=== PATIENT | female | born 1995 | race Caucasian/White ===

== ENCOUNTER 2018-12-19 12:52 | Emergency (ER) | payer MEDICAID, OTHER ==
[~2018-12-19] VITALS: Ht 172.7 cm; Wt 82.6 kg
--- NOTE | 2018-12-19 13:00 | NUR ---
PT LAMIN SHANE AND JOSE MENTAL EVALUATION UNIT FROM HOME, PER JOSE MOTHER CALLED [facility] PT STATED "I DON'T WANT TO LIVE ANYMORE", PLACED ON 5150 FOR DANGER TO SELF. LFA LAC NOTED, SELF INFLICTED. TO ER BED 11, HOOKED TO MONITOR, CHANGED TO GOWN, PROVIDED W WARM BLANKET, PT DENIES SI IN EMERGENCY DEPT., AWAITING MD FIELD.
[2018-12-19 13:28] LABS: APPEARANCE,URINE Turbid (CLEAR); BILIRUBIN,URINE Negative (NEGATIVE); BLOOD, URINE Moderate Ery/uL (NEGATIVE); COLOR,URINE Yellow (YELLOW); KETONES,URINE Negative (NEGATIVE); LEUKOCYTE ESTERASE ,URINE Moderate (NEGATIVE); NITRITE, URINE Negative (NEGATIVE); PH,URINE 6.5 (5.0-8.0); PROTEIN,URINE Trace mg/dl (NEGATIVE); UGLUCOSE Negative (NEGATIVE); UROBILINOGEN,URINE 0.2 EU/dL (0.2)
[2018-12-19 13:33] LABS: BASOPHILS # (AUTO) 0.1 /CMM (0.0-0.2); BASOPHILS % (AUTO) 1.2 % (0.0-2.0); EOSINOPHILS % (AUTO) 3.4 % (0.0-6.0); HEMATOCRIT 36 % (33-45); LYMPHOCYTES # (AUTO) 2.5 /CMM (0.8-4.8); LYMPHOCYTES % (AUTO) 50.3 % (20.0-44.0); MEAN CORPUSCULAR HGB CONC 33 g/dl (31.0-36.0); MEAN CORPUSCULAR VOLUME 87 fL (82-100); MONOCYTES # (AUTO) 0.5 /CMM (0.1-1.30); MONOCYTES % (AUTO) 10.4 % (2.0-12.0); NEUTROPHILS # (AUTO) 1.7 /CMM (1.8-8.9); NEUTROPHILS % (AUTO) 34.7 % (43.0-81.0); PLATELET COUNT (AUTO) 250 /CMM (150-450); RED BLOOD CELL COUNT(AUTO) 4.16 MIL/uL (4.0-5.2)
[2018-12-19 13:38] LABS: BACTERIA,URINE Many /HPF (None Seen); SQUAMOUS EPITHELIAL CELL,UR Few /HPF (None Seen)
[2018-12-19 13:39] LABS: WBC,URINE TOO NUMEROUS TO COUN /HPF (0-3)
--- NOTE | 2018-12-19 13:40 | NUR ---
ELLA HINTON AT BEDSIDE
[2018-12-19 13:43] LABS: CALCIUM, SERUM 8.8 mg/dL (8.5-10.1); CARBON DIOXIDE 27 mmol/L (21-32); CHLORIDE 105 mmol/L (98-107); CREATININE 0.7 mg/dL (0.6-1.3); GLUCOSE 94 mg/dL (74-106); POTASSIUM 4.2 mmol/L (3.5-5.1); SODIUM SERUM 138 mmol/L (136-145); UREA NITROGEN, BLOOD 10 mg/dL (7-18)
--- NOTE | 2018-12-19 13:45 | NUR ---
PT REFUSED STITCHING OF LFA LAC. ELLA HINTON AT BEDSIDE TO APPLY STERISTRIPS.
[2018-12-19 13:48] LABS: ACETAMINOPHEN < 2 ug/ml (10-30); ALANINE AMINOTRANSFERASE 20 U/L (12-78); ALBUMIN 3.4 g/dL (3.4-5.0); ALCOHOL, BLOOD < 3 mg/dL (0-0); ALKALINE PHOSPHATASE 66 U/L (46-116); ASPARTATE AMINOTRANSFERASE 18 U/L (15-37); BILIRUBIN,DIRECT 0.1 mg/dL (0.0-0.2); BILIRUBIN,TOTAL 0.5 mg/dL (0.2-1.0); SALICYLATE < 2.8 mg/dL (2.8-20.0); TOTAL PROTEIN, SERUM 6.7 g/dL (6.4-8.2)
--- NOTE | 2018-12-19 14:55 | NUR ---
MOTHER CHRISTIAN ELIAS AT BEDSIDE
--- NOTE | 2018-12-19 15:17 | NUR ---
CALLED [employer] JAYE LEFT VOICEMAIL.
[2018-12-19] MEDS ORDERED: NITROFURANTOIN/NITROFURAN MAC 100 MG CAPSULE ONE (15:23)
[2018-12-19] MEDS ORDERED: NITROFURANTOIN/NITROFURAN MAC 100 MG CAPSULE PO ONE (15:30)
--- NOTE | 2018-12-19 16:56 | NUR ---
[employer] MACHINE JAYE AT BEDSIDE
[2018-12-19] MEDS ORDERED: LIDOCAINE 1%-EPI 1:100,000 20 ML VIAL ONE (16:57)
--- NOTE | 2018-12-19 16:57 | NUR ---
FOOD TRAY PROVIDED TO PATIENT
--- NOTE | 2018-12-19 17:08 | NUR ---
ELLA HINTON AT BEDSIDE FOR STITCHING OF LFA LAC
--- NOTE | 2018-12-19 17:10 | NUR ---
medical restraints removed as pt is calmer and cooperative w care. mother at bedside.
[2018-12-19] MEDS ORDERED: TDAP [DIPH/PERTUSSIS/TET] 0.5 ML VIAL IM ONE ×2 (17:30→17:35)
--- NOTE | 2018-12-19 17:46 | NUR ---
Patient discharged to home with mother in stable condition. Written and verbal after care instructions given. Patient verbalizes understanding of instruction.
[2018-12-19 17:49] VITALS: BP 124/70
== END 2018-12-19 17:50 | disposition home or self-care (01) ==
LOC: ER 12:58
DX: S51.812A Laceration without foreign body of left forearm, initial encounter (principal); N39.0 Urinary tract infection, site not specified; F15.10 Other stimulant abuse, uncomplicated; F31.9 Bipolar disorder, unspecified; F25.9 Schizoaffective disorder, unspecified; F12.10 Cannabis abuse, uncomplicated; F17.200 Nicotine dependence, unspecified, uncomplicated; Z23 Encounter for immunization; Z88.0 Allergy status to penicillin; X78.9XXA Intentional self-harm by unspecified sharp object, initial encounter; Y93.89 Activity, other specified; Y92.89 Other specified places as the place of occurrence of the external cause; Y99.8 Other external cause status
CPT/HCPCS: 12002; 36415; 80048; 80076; 80307; 80329; 81001; 84703; 85025; 87077; 87086; 90471; 90715; 99285; A6403; J3490; 80305; 81000-TC; G0480

== ENCOUNTER 2023-01-15 18:12 | Emergency (ER) | payer OTHER ==
[~2023-01-15] VITALS: Ht 172.7 cm; Wt 108.9 kg
--- NOTE | 2023-01-15 18:20 | NUR ---
BIBRA 41 ALLERGIC REACTION. NO SIGNS OF SYMPTOMS OF DISTRESS NOTED. AIRWAY IS CLEAR. TONGUE IS NOT SWELLING. .5 EPI IM GIVEN OCEANOLOGIST BY EMS. PLACED IN BED, AAOX4, BREATHING EVEN AND UNLABORED SATURATING AT 98%RA.
[2023-01-15] MEDS ORDERED: methylPREDNISolone SOD SUCC 125 MG/2ML VIAL ONE (18:24)
[2023-01-15] MEDS ORDERED: FAMOTIDINE/PF INJ 20 MG/2 ML VIAL IV ONE ×2 (18:25→18:30)
[2023-01-15] MEDS ORDERED: methylPREDNISolone SOD SUCC 125 MG/2ML VIAL IV ONE (18:30)
[2023-01-15] MEDS ORDERED: IV NS 0.9% 1,000 ML BAG IV ONE (18:30)
--- NOTE | 2023-01-15 18:30 | NUR ---
BLOOD DRAWN AND SENT TO LAB
[2023-01-15] MEDS ORDERED: diphenhydrAMINE HCL 50 MG/ML VIAL ONE (18:42)
[2023-01-15] MEDS ORDERED: diphenhydrAMINE HCL 50 MG/ML VIAL IV ONE (19:00)
[2023-01-15 19:20] LABS: BASOPHILS % (AUTO) 0.7 % (0.0-2.0); EOSINOPHILS % (AUTO) 3.2 % (0.0-6.0); HEMATOCRIT 36 % (33-45); HEMOGLOBIN 11.8 g/dL (11.5-14.8); LYMPHOCYTES # (AUTO) 3.6 K/uL (0.8-4.8); LYMPHOCYTES % (AUTO) 50.2 % (20.0-44.0); MEAN CORPUSCULAR HGB CONC 33 g/dl (31.0-36.0); MEAN CORPUSCULAR VOLUME 86 fL (82-100); MONOCYTES # (AUTO) 0.6 K/uL (0.1-1.30); MONOCYTES % (AUTO) 8.4 % (2.0-12.0); NEUTROPHILS # (AUTO) 2.7 K/uL (1.8-8.9); NEUTROPHILS % (AUTO) 37.5 % (43.0-81.0); PLATELET COUNT (AUTO) 300 K/uL (150-450); RED BLOOD CELL COUNT(AUTO) 4.21 MIL/uL (4.0-5.2); WHITE BLOOD COUNT (AUTO) 7.1 K/uL (4.3-11.0)
[2023-01-15 19:35] LABS: ALANINE AMINOTRANSFERASE 38 U/L (12-78); ALBUMIN 3.5 g/dL (3.4-5.0); ALCOHOL, BLOOD < 3 mg/dL (0-10); ALKALINE PHOSPHATASE 74 U/L (46-116); ASPARTATE AMINOTRANSFERASE 15 U/L (15-37); BILIRUBIN,TOTAL 0.2 mg/dL (0.2-1.0); CALCIUM, SERUM 9.2 mg/dL (8.5-10.1); CARBON DIOXIDE 31 mmol/L (21-32); CHLORIDE 105 mmol/L (98-107); CREATININE 0.7 mg/dL (0.6-1.3); GLUCOSE 109 mg/dL (74-106); POTASSIUM 3.9 mmol/L (3.5-5.1); SODIUM SERUM 143 mmol/L (136-145); TOTAL PROTEIN, SERUM 7.5 g/dL (6.4-8.2); UREA NITROGEN, BLOOD 10 mg/dL (7-18)
--- NOTE | 2023-01-15 20:30 | NUR ---
IV removed. Catheter intact and site benign. Pressure and 4x4 applied to site. No bleeding noted.Patient discharged to home in stable condition. Written and verbal after care instructions given. Patient verbalizes understanding of instruction.
[2023-01-15 20:40] VITALS: BP 120/70; TEMP 98; O2SAT 99
== END 2023-01-15 20:30 | disposition home or self-care (01) ==
LOC: ER 18:17
DX: G24.9 Dystonia, unspecified (principal); T43.4X5A Adverse effect of butyrophenone and thiothixene neuroleptics, initial encounter; F20.9 Schizophrenia, unspecified; Z88.0 Allergy status to penicillin; Y92.89 Other specified places as the place of occurrence of the external cause
CPT/HCPCS: 99284; 96374; 96361; 96375; 85025; 80048; 80076; 36415; 80143; 80320; 80179; J1200; J3490; J2930; J7030; G0480

== ENCOUNTER 2024-06-02 14:57 | Inpatient (IN) | payer OTHER ==
[~2024-06-02] VITALS: Ht 172.7 cm; Wt 102.1 kg
[2024-06-02] MEDS: IV NS 0.9% 1,000 ML BAG IV ONE (15:22)
[2024-06-02 15:27] LABS: BASOPHILS % (AUTO) 0.2 % (0.0-2.0); EOSINOPHILS % (AUTO) 0.2 % (0.0-6.0); HEMATOCRIT 34 % (33-45); HEMOGLOBIN 11.4 g/dL (11.5-14.8); LYMPHOCYTES # (AUTO) 0.8 K/uL (0.8-4.8); LYMPHOCYTES % (AUTO) 5.3 % (20.0-44.0); MEAN CORPUSCULAR HEMOGLOBIN 27 PG (26.0-33.0); MEAN CORPUSCULAR HGB CONC 34 g/dl (31.0-36.0); MEAN CORPUSCULAR VOLUME 81 fL (82-100); MONOCYTES # (AUTO) 1.7 K/uL (0.1-1.30); MONOCYTES % (AUTO) 11.8 % (2.0-12.0); NEUTROPHILS # (AUTO) 12.2 K/uL (1.8-8.9); NEUTROPHILS % (AUTO) 82.5 % (43.0-81.0); PLATELET COUNT (AUTO) 305 K/uL (150-450); RED BLOOD CELL COUNT(AUTO) 4.16 MIL/uL (4.0-5.2); RED CELL DISTRIBUTION WIDTH 14.9 % (11.5-15.0); WHITE BLOOD COUNT (AUTO) 14.8 K/uL (4.3-11.0)
[2024-06-02 15:44] LABS: INR 1.09 (0.91-1.10); PARTIAL THROMBOPLASTIN TIME 28.7 SEC (24.3-34.3); PROTHROMBIN TIME 11.5 SECS (9.2-11.1)
[2024-06-02 15:46] LABS: CARBON DIOXIDE 23 mmol/L (21-32); CHLORIDE 95 mmol/L (98-107); CREATININE 0.9 mg/dL (0.6-1.3); GLUCOSE 130 mg/dL (74-106); POTASSIUM 3.5 mmol/L (3.5-5.1); SODIUM SERUM 132 mmol/L (136-145); UREA NITROGEN, BLOOD 9 mg/dL (7-18)
[2024-06-02] MEDS ORDERED: ACETAMINOPHEN ES 500 MG TABLET ONE (15:49)
[2024-06-02] MEDS: ACETAMINOPHEN ES 500 MG TABLET PO ONE (15:52)
[2024-06-02 15:53] LABS: ALANINE AMINOTRANSFERASE 160 U/L (12-78); ALBUMIN 2.5 g/dL (3.4-5.0); ALKALINE PHOSPHATASE 138 U/L (46-116); ASPARTATE AMINOTRANSFERASE 116 U/L (15-37); BILIRUBIN,DIRECT 2.9 mg/dL (0.0-0.2); BILIRUBIN,TOTAL 3.8 mg/dL (0.2-1.0); TOTAL PROTEIN, SERUM 8.4 g/dL (6.4-8.2)
[2024-06-02 15:56] LABS: PREGNANCY TEST SERUM QUAN 0 mIU/mL (0-6)
[2024-06-02] MEDS: CEFEPIME 1 GM in IV D5W 50 ML IV ONE (15:57)
[2024-06-02 16:07] LABS: LACTIC ACID 2.3 mmol/L (0.4-2.0)
[2024-06-02] MEDS: VANCOMYCIN 1 GM in IV D5W 250 ML IV ONE (16:40)
[2024-06-02 17:03] LABS: C-REACTIVE PROTEIN > 25.00 mg/dL (0.0-0.30)
[2024-06-02] MEDS ORDERED: ONDANSETRON HCL/PF 4 MG/2 ML VIAL IVP PRN (18:00)
[2024-06-02] MEDS: IV NS 0.9% 1,000 ML IV PRN (18:24)
[2024-06-02 20:00] VITALS: BP 92/55; TEMP 98; O2SAT 98
[2024-06-02] MEDS: HEPARIN SODIUM, PORCINE 5000 UNITS/1 ML VIAL SQ SCH (21:30)
[2024-06-02 22:00] VITALS: BP 102/63; TEMP 98; O2SAT 98
[2024-06-03] MEDS: MORPHINE SULFATE INJ 2 MG/ML DISP.SYRIN IV PRN (01:39)
[2024-06-03 04:00] VITALS: BP 99/57; TEMP 98; O2SAT 98
[2024-06-03] MEDS ORDERED: CLINDAMYCIN 900 MG/6 ML VIAL ONE (05:10)
[2024-06-03] MEDS: CLINDAMYCIN 900 MG in IV D5W 50 ML IV SCH (05:11)
[2024-06-03 06:45] LABS: BASOPHILS % (AUTO) 0.2 % (0.0-2.0); EOSINOPHILS # (AUTO) 0.1 K/uL (0.0-0.7); EOSINOPHILS % (AUTO) 0.5 % (0.0-6.0); HEMATOCRIT 30 % (33-45); HEMOGLOBIN 10.2 g/dL (11.5-14.8); LYMPHOCYTES # (AUTO) 0.9 K/uL (0.8-4.8); LYMPHOCYTES % (AUTO) 5.9 % (20.0-44.0); MEAN CORPUSCULAR HEMOGLOBIN 28 PG (26.0-33.0); MEAN CORPUSCULAR HGB CONC 34 g/dl (31.0-36.0); MEAN CORPUSCULAR VOLUME 82 fL (82-100); MONOCYTES # (AUTO) 1.3 K/uL (0.1-1.30); MONOCYTES % (AUTO) 8.5 % (2.0-12.0); NEUTROPHILS # (AUTO) 13.4 K/uL (1.8-8.9); NEUTROPHILS % (AUTO) 84.9 % (43.0-81.0); PLATELET COUNT (AUTO) 275 K/uL (150-450); RED BLOOD CELL COUNT(AUTO) 3.69 MIL/uL (4.0-5.2); RED CELL DISTRIBUTION WIDTH 14.9 % (11.5-15.0); WHITE BLOOD COUNT (AUTO) 15.8 K/uL (4.3-11.0)
[2024-06-03 06:49] LABS: ALBUMIN 1.8 g/dL (3.4-5.0); BILIRUBIN,TOTAL 3.8 mg/dL (0.2-1.0); CALCIUM, SERUM 8.2 mg/dL (8.5-10.1); CREATININE 0.9 mg/dL (0.6-1.3); MAGNESIUM 1.9 mg/dL (1.8-2.4); PHOSPHORUS 3.3 mg/dL (2.5-4.9); TOTAL PROTEIN, SERUM 6.4 g/dL (6.4-8.2)
[2024-06-03] MEDS ORDERED: CLINDAMYCIN PHOSPHATE IV 600 MG/4 ML VIAL IV SCH (09:00)
[2024-06-03 16:00] VITALS: BP 91/65; TEMP 102.2; O2SAT 95
[2024-06-03] MEDS: ACETAMINOPHEN 325 MG TABLET PO PRN (16:04)
[2024-06-03 20:00] VITALS: BP 101/71; TEMP 101.8; O2SAT 99
[2024-06-04 04:00] VITALS: BP 100/79; TEMP 100; O2SAT 97
[2024-06-04 08:00] VITALS: BP 103/57; TEMP 98.3; O2SAT 98
[2024-06-04 12:00] VITALS: BP 105/76; TEMP 99.8; O2SAT 97
[2024-06-04] MEDS ORDERED: QUET100T PO (14:23)
[2024-06-04] MEDS ORDERED: QUET300T2 PO (14:23)
[2024-06-04] MEDS ORDERED: ARIPIPRAZOLE IM (14:23)
[2024-06-04] MEDS: METOCLOPRAMIDE HCL 10 MG/2 ML VIAL IV SCH (14:41)
[2024-06-04 20:00] VITALS: BP 105/76; TEMP 100.6; O2SAT 98
[2024-06-04] MEDS: QUETIAPINE FUMARATE 100 MG TABLET PO SCH (21:36)
[2024-06-05 04:00] VITALS: BP 105/76; TEMP 100.6; O2SAT 98
[2024-06-05 06:36] LABS: BASOPHILS # (AUTO) 0.1 K/uL (0.0-0.2); BASOPHILS % (AUTO) 0.5 % (0.0-2.0); EOSINOPHILS # (AUTO) 0.2 K/uL (0.0-0.7); EOSINOPHILS % (AUTO) 1.3 % (0.0-6.0); HEMATOCRIT 26 % (33-45); HEMOGLOBIN 8.7 g/dL (11.5-14.8); LYMPHOCYTES # (AUTO) 1.9 K/uL (0.8-4.8); LYMPHOCYTES % (AUTO) 14.6 % (20.0-44.0); MEAN CORPUSCULAR HEMOGLOBIN 27 PG (26.0-33.0); MEAN CORPUSCULAR HGB CONC 33 g/dl (31.0-36.0); MEAN CORPUSCULAR VOLUME 82 fL (82-100); MONOCYTES # (AUTO) 1.5 K/uL (0.1-1.30); MONOCYTES % (AUTO) 11.6 % (2.0-12.0); NEUTROPHILS # (AUTO) 9.3 K/uL (1.8-8.9); PLATELET COUNT (AUTO) 341 K/uL (150-450); RED BLOOD CELL COUNT(AUTO) 3.19 MIL/uL (4.0-5.2); RED CELL DISTRIBUTION WIDTH 15.7 % (11.5-15.0); WHITE BLOOD COUNT (AUTO) 12.9 K/uL (4.3-11.0)
[2024-06-05 06:53] LABS: ALBUMIN 1.5 g/dL (3.4-5.0); BILIRUBIN,TOTAL 1.7 mg/dL (0.2-1.0); CALCIUM, SERUM 8.6 mg/dL (8.5-10.1); CREATININE 0.7 mg/dL (0.6-1.3); POTASSIUM 3.6 mmol/L (3.5-5.1); TOTAL PROTEIN, SERUM 6.5 g/dL (6.4-8.2)
[2024-06-05] MEDS: QUETIAPINE FUMARATE 100 MG TABLET PO SCH (08:42)
[2024-06-05 16:00] VITALS: BP 149/100; TEMP 97.9; O2SAT 98
[2024-06-05 20:00] VITALS: BP 148/68; TEMP 98.2; O2SAT 98
[2024-06-06 08:00] VITALS: BP 120/74; TEMP 98.2; O2SAT 96
[2024-06-06] MEDS ORDERED: HYDR-3972 PO (13:14)
[2024-06-06] MEDS ORDERED: ACID1TAB4 PO (13:14)
[2024-06-06] MEDS ORDERED: CLIN300C12 PO (13:14)
== END 2024-06-06 17:45 | disposition home health service (06) | DRG 720 ==
LOC: ER 14:58 → TELE1 18:06 → MEDSG1 18:23 → MED 06-06 05:52
PROVIDERS: ADMIT Internal Medicine; ATTEND Nurse Practitioner Acute Care
DX: A41.9 Sepsis, unspecified organism (principal); E87.20 Acidosis, unspecified; E87.1 Hypo-osmolality and hyponatremia; L03.115 Cellulitis of right lower limb; R65.20 Severe sepsis without septic shock; Z59.00 Homelessness unspecified; Z20.822 Contact with and (suspected) exposure to COVID-19; F25.9 Schizoaffective disorder, unspecified; E80.6 Other disorders of bilirubin metabolism; Z88.0 Allergy status to penicillin; Z68.34 Body mass index [BMI] 34.0-34.9, adult; E66.9 Obesity, unspecified; D50.9 Iron deficiency anemia, unspecified; F29 Unspecified psychosis not due to a substance or known physiological condition
CPT/HCPCS: 36415; 71045-TC; 73700-TC; 76705-TC; 78226; 80048-TC; 80053-TC; 80076-TC; 83605-TC; 83735-TC; 84100-TC; 84484-TC; 84702-TC; 85025-TC; 85652-TC; 85730-TC; 86140-TC; 87040-TC; 93971-TC; A4223; A6253; A6403; A9537; G0378; J0692; J1644; J2270; J2765; J3370; J3490; J7030; J7050; J7060